=== PATIENT | female | born 2000 | race African-American/Black ===

== ENCOUNTER 2019-08-25 16:13 | Emergency (ER) | payer MEDICAID, SELFPAY ==
[~2019-08-25 16:13] MED LIST: Iopamidol 370 76% 100 ML VIAL ONE
[2019-08-25] MEDS ORDERED: Sodium Chloride 0.9% 1,000 ML ONE (16:21)
[2019-08-25 16:40] LABS: #Basophils 0.1 thou/uL (0.0-0.2); #Eosinphils 0.1 thou/uL (0.0-0.7); #Lymphocytes 1.2 thou/uL (1.20-3.40); #Monocytes 0.5 thou/uL (0.11-0.59); #Neutrophils 2.9 thou/uL (1.40-6.50); %Basophils 1.9 % (0.0-1.0); %Eosinophils 2.3 % (0.0-10.0); %Lymphocytes 25.6 % (28.0-48.0); %Monocytes 9.6 % (0.0-4.0); %Neutrophils 60.5 % (31.0-61.0); Hemoglobin 11.6 g/dL (12.0-16.0); Mean Corpuscular HGB CONC 30.3 g/dL (32.0-36.0); Mean Corpuscular Hemoglobin 25.5 pg (25.0-35.0); Mean Corpuscular Volume 84.2 fL (78.0-98.0); Mean Platelet Volume 8.8 fL (7.4-10.4); Platelet Count 281 thou/uL (130-400); RBC Distribution Width 13.5 % (11.5-14.5); Red Blood Cell (RBC) Count 4.54 mill/uL (4.00-5.20); White Blood Cell (WBC) Count 4.7 thou/uL (4.8-10.8)
[2019-08-25 16:43] LABS: Bilirubin Negative (Negative); Blood, Urine Small (Negative); Clarity Clear (Clear); Glucose, Urine (Dipstick) Negative (Negative); Leukocyte Negative (Negative); Nitrite Negative (Negative); Protein, Urine (Dipstick) Negative (Neg-Trace); Urobilinogen 0.2 mg/dL (Less than 2)
[2019-08-25 16:46] LABS: Pregnancy Test - Urine (BHCG) Negative (Negative); Pregu Control Background? CLEAR/WHITE (CLR/WHITE); Pregu Control Bar Appear? YES (CONTROL BAR); Specific Gravity 1.026 (1.002-1.036)
[2019-08-25 16:50] LABS: Bacteria/HPF Rare-Few HPF (None Seen); RBC/HPF 0-3 HPF (0-3); Squamous Epithelial 0-3 HPF (0-3); WBC/HPF 0-3 HPF (0-3)
[2019-08-25 16:54] LABS: ALT (SGPT) 11 U/L (8-55); AST (SGOT) 17 U/L (5-30); Albumin 4.3 g/dL (3.5-5.0); Alcohol Less than 10 mg/dL (Less than 10); Alkaline Phosphatase 58 U/L (40-100); Anion Gap 13 mmol/L (10-20); BUN (Urea Nitrogen) 15 mg/dL (8.4-21.0); Bilirubin, Total 0.4 mg/dL (0.2-1.2); Calc. Creatinine Clearance 0 mL/min (70-130); Calcium 9.1 mg/dL (7.8-10.44); Carbon Dioxide 21 mmol/L (22-29); Chloride 107 mmol/L (98-107); Estimated GFR-MDRD Greater than 90; Globulin 3.2 g/dL (2.4-3.5); Glucose 91 mg/dL (70-105); Potassium 3.9 mmol/L (3.5-5.1); Protein, Total 7.5 g/dL (6.0-8.3); Sodium 137 mmol/L (136-145)
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
[2019-08-25] MEDS ORDERED: Ibuprofen 800 MG TAB ONE (18:33)
== END 2019-08-25 18:36 | disposition home or self-care (01) ==
LOC: MADERS 16:13
DX: S16.1XXA Strain of muscle, fascia and tendon at neck level, initial encounter (principal); M94.0 Chondrocostal junction syndrome [Tietze]; V44.5XXA Car driver injured in collision with heavy transport vehicle or bus in traffic accident, initial encounter
CPT/HCPCS: 51701; 70450; 71260; 72125; 74177; 80053; 80307; 81003; 81015; 81025; 85025; 94760; 96360; A4353; G0390; J7050; L0120; Q9967

== ENCOUNTER 2020-10-10 07:50 | Outpatient (CLI) | payer BC | END 2020-10-10 07:51 | disposition home or self-care (01) | LOC: MADULT 07:50 | PROVIDERS: ATTEND Family Medicine | DX: N94.6 Dysmenorrhea, unspecified (principal); N83.201 Unspecified ovarian cyst, right side; N83.202 Unspecified ovarian cyst, left side | CPT/HCPCS: 76856 ==

== ENCOUNTER 2020-10-20 19:02 | Emergency (ER) | payer BC ==
[2020-10-20 20:08] LABS: Hemoglobin 9.9 g/dL (12.0-16.0); Mean Corpuscular Hemoglobin 23.2 pg (25.0-35.0); Mean Corpuscular Volume 77.5 fL (78.0-98.0); Mean Platelet Volume 7.8 fL (7.4-10.4); Platelet Count 340 thou/uL (130-400); Red Blood Cell (RBC) Count 4.28 mill/uL (4.00-5.20)
[2020-10-20 20:09] LABS: INR-International Normal Ratio 1.1; PTT 30.8 sec (22.9-36.1); Prothrombin Time 13.9 sec (12.0-14.7)
[2020-10-20 20:13] LABS: #Basophils 0.1 thou/uL (0.0-0.2); #Eosinphils 0.1 thou/uL (0.0-0.7); #Lymphocytes 1.3 thou/uL (1.20-3.40); #Monocytes 0.5 thou/uL (0.11-0.59); #Neutrophils 3.1 thou/uL (1.40-6.50); %Basophils 1.5 % (0.0-1.0); %Eosinophils 1.6 % (0.0-10.0); %Lymphocytes 26.3 % (28.0-48.0); %Monocytes 9.7 % (0.0-4.0); %Neutrophils 60.9 % (31.0-61.0)
[2020-10-20 20:14] LABS: Hypochromia SLIGHT = 6-15 cells (100X) (0-5/hpf); MDiff Complete? YES; Microcytosis SLIGHT = 6-15 cells (100X) (0-5/hpf); Ovalocytes SLIGHT = 2-5 cells (100X) (0-1/hpf); Platelet Morphology Comment Appears Adequate
[2020-10-20 20:21] LABS: ALT (SGPT) 8 U/L (8-55); AST (SGOT) 16 U/L (5-34); Albumin 4.1 g/dL (3.5-5.0); Alkaline Phosphatase 56 U/L (40-100); Anion Gap 14 mmol/L (10-20); BUN (Urea Nitrogen) 15 mg/dL (7.0-18.7); Bilirubin, Total 0.4 mg/dL (0.2-1.2); Calc. Creatinine Clearance 0 mL/min (70-130); Calcium 8.8 mg/dL (7.8-10.44); Carbon Dioxide 22 mmol/L (22-29); Chloride 105 mmol/L (98-107); Globulin 3.1 g/dL (2.4-3.5); Glucose 88 mg/dL (70-105); Protein, Total 7.2 g/dL (6.0-8.3); Sodium 137 mmol/L (136-145)
== END 2020-10-20 20:45 | disposition home or self-care (01) ==
LOC: MADERS 19:02
DX: N93.8 Other specified abnormal uterine and vaginal bleeding (principal); D50.0 Iron deficiency anemia secondary to blood loss (chronic); G35 Multiple sclerosis; Z79.899 Other long term (current) drug therapy
CPT/HCPCS: 36415; 80053; 85025; 85610; 85730; 99284